=== PATIENT | female | born 1995 | race Caucasian/White ===

== ENCOUNTER 2016-11-08 02:30 | Emergency (ER) | payer OTHER ==
[2016-11-08 02:41] VITALS: TEMP 98; BMI 32.3
--- NOTE | 2016-11-08 02:50 | PDOC ---
History of Present Illness - General Chief Complaint: Psychiatric Stated Complaint: I DONT WANT TO LIVE Time Seen by Provider: 11/08/16 02:46 History Source: Patient Exam Limitations: No Limitations - History of Present Illness Initial Comments: 11/08/16 02:49 This is a 21-year-old female brought in by her family for evaluation of patient stating I don't want to live. Patient here in the emergency room is not talking to the emergency department staff and just closes her eyes and doesn't answer questions. Patient's family said that they do not think she took anything however they can't be sure they did not find any empty pill bottles there was no noted at home. But she did tell them she doesn't want to live. PAST MEDICAL HISTORY: no significant history PAST SURGICAL HISTORY: no significant history FAMILY HISTORY: no pertinant history SOCIAL HISTORY: Pt lives with family and is employed. MEDICATIONS: reviewed ALLERGIES: As per nursing notes Review of Systems General: No fevers or chills, no weakness, no weight loss HEENT: No change in vision. No sore throat,. No ear pain CardioVascular: No chest pain or shortness of breath Respiratory:No cough, or wheezing. Gastrointestinal: no nausea, vomitting, diarrhea or constipation, No rectal bleeding Genitourinary: No dysuria, hematuria, or frequency Musculoskeletal: No joint or muscle pain or swelling Neurologic: No headache, vertigo, dizziness or loss of consciousness Psychiatric: + depression Skin: No rashes or easy bruising Endocrine: no increased thirst or abnormal weight change Allergic: no skin or latex allergy All other systems reviewed and normal Exam: General: Well-nourished well-developed individual, no acute distress HEENT: Throat: Normal, tonsils normal, no erythema or exudate Neck: Supple, no meningeal signs, no lymphadenopathy Eyes::Pupils equal reactive and round, extraocular motion intact Chest: Nontender to palpation Cardiac: S1-S2 normal, regular rate and rhythm, no murmurs rubs or gallops Respiratory: Lungs clear to auscultation bilateral Abdomen: Soft, nondistended, normal bowel sounds, nontender to palpation diffusely Extremities: Warm, dry, no cyanosis, clubbing, or edema Skin: No rashes Neuro: Alert and oriented x3, nonfocal exam, grossly intact, normal gait Psych:depressed mood 11/08/16 03:56 Patient now more awake and alert, conversing with family and intermittently tearful. Patient said she did take some oxycodone. Patient takes oxycodone for some chronic wrist pain. Patient is also 2 months with twins and says she's been very stressed, getting very little sleep and is exhausted, tired , and depressed. 11/08/16 07:00 Patient transferred to at 7 AM. Patient's drug screen, tox screen and TSH are still pending at this time. Case discussed in detail with oncoming Emergency Physician including history, physical exam and ancillary studies. Oncoming Emergency Physician has assumed care for the patient and will complete the evaluation and treatment. Patient is aware of the plan. Pt is clinically unchanged and stable. Past History - Past Medical History Allergies/Adverse Reactions: Allergies Allergy/AdvReac Type Severity Reaction Status Date / Time No Known Allergies Allergy Unverified 11/08/16 02:34 Home Medications: Ambulatory Orders NK [No Known Home Medication] 11/08/16 Other medical history: DENIES - Psycho/Social/Smoking Cessation Hx Anxiety: No Suicidal Ideation: No Smoking History: Unknown if ever smoked *Physical Exam - Vital Signs Last Vital Signs Temp Pulse Resp BP Pulse Ox 98 F 89 18 147/100 100 11/08/16 02:38 11/08/16 02:38 11/08/16 02:38 11/08/16 02:38 11/08/16 02:38 ED Treatment Course - LABORATORY CBC & Chemistry Diagram: 11/08/16 02:55 11/08/16 02:55 *DC/Admit/Observation/Transfer Diagnosis at time of Disposition: Wrist pain - Discharge Dispostion Disposition: HOME Condition at time of disposition: Stable - Referrals Referrals: Vishal Ivan MD [Staff Physician] - 3 days - Patient Instructions Printed Discharge Instructions: DI for Wrist Sprain Additional Instructions: Return to the emergency department immediately with ANY new, persistent or worsening symptoms. You MUST call and follow up with your doctor tomorrow. Please make sure your doctor reviews the results of your emergency department evaluation.
[2016-11-08] MEDS ORDERED: ONDANSETRON 4 MG/2 ML VIAL IVPB ONE (03:17)
[2016-11-08] MEDS ORDERED: ONDANSETRON 4 MG/2 ML VIAL ONE (03:45)
[2016-11-08 04:30] LABS: URINE APPEARANCE SLCLOUDY; URINE BILIRUBIN NEGATIVE (NEGATIVE); URINE COLOR YELLOW; URINE GLUCOSE (UA) NEGATIVE (NEGATIVE); URINE KETONE NEGATIVE (NEGATIVE); URINE LEUK ESTERASE NEGATIVE (NEGATIVE); URINE NITRITE NEGATIVE (NEGATIVE); URINE UROBILINOGEN NEGATIVE E.U./dl (0.2-1.0)
[2016-11-08 04:32] LABS: BASOPHIL 0.5 % (0-2.0); MCH 26.8 pg (25.7-33.7); MCHC 32.3 g/dl (32.0-36.0); MEAN CELL VOLUME 82.9 fl (80-96); MEAN PLT VOLUME 9.2 fl (7.5-11.1); NEUTROPHILS 48.7 % (42.8-82.8); PLATELET COUNT 312 K/MM3 (134-434); RDW 15.8 % (11.6-15.6); WHITE BLOOD COUNT 7.5 K/mm3 (4.0-10.0)
[2016-11-08 04:33] LABS: URINE BLOOD 2+ (NEGATIVE); URINE PROTEIN 1+ (NEGATIVE)
[2016-11-08 04:36] LABS: GRANULAR CASTS 4 /lpf; URINE HYALINE CAST 11 /lpf; URINE MUCUS MODERATE; URINE RBC 2 /hpf (0-3); URINE WBC 6 /hpf (3-5)
[2016-11-08 05:02] LABS: ALBUMIN 3.7 g/dl (3.4-5.0); ANION GAP 16 (8-16); CALCIUM 8.9 mg/dL (8.5-10.1); CO2 21 mmol/L (21-32); CREATININE 0.8 mg/dL (0.55-1.02); GLUCOSE,RANDOM 121 mg/dL (74-106); SGOT/AST 24 U/L (15-37); SGPT/ALT 43 U/L (12-78)
[2016-11-08 05:05] LABS: ALK PHOS 131 U/L (45-117); BILIRUBIN,TOTAL 0.2 mg/dL (0.2-1.0); TOT PROT 8.1 g/dl (6.4-8.2); TROPONIN I < 0.02 ng/ml (0.00-0.05)
[2016-11-08 06:16] VITALS: BP 109/66; PULSE 68
--- NOTE | 2016-11-08 08:57 | PDOC ---
*Physical Exam - Vital Signs Last Vital Signs Temp Pulse Resp BP Pulse Ox 98 F 68 12 109/66 100 11/08/16 02:38 11/08/16 06:15 11/08/16 06:15 11/08/16 06:15 11/08/16 06:15 ED Treatment Course - LABORATORY CBC & Chemistry Diagram: 11/08/16 02:55 11/08/16 02:55 - ADDITIONAL ORDERS Additional order review: Laboratory Results 11/08/16 11/08/16 11/08/16 02:55 02:55 02:55 Sodium 138 Potassium 3.4 L Chloride 101 Carbon Dioxide 21 Anion Gap 16 BUN 21 H Creatinine 0.8 Creat Clearance w eGFR > 60 Random Glucose 121 H Calcium 8.9 Total Bilirubin 0.2 AST 24 ALT 43 Alkaline Phosphatase 131 H Creatine Kinase 138 Troponin I < 0.02 Total Protein 8.1 Albumin 3.7 Urine Color Yellow Urine Appearance Slcloudy Urine pH 5.0 Ur Specific [place] 1.026 Urine Protein 1+ H Urine Glucose (UA) Negative Urine Ketones Negative Urine Blood 2+ H Urine Nitrite Negative Urine Bilirubin Negative Urine Urobilinogen Negative Ur Leukocyte Esterase Negative Urine RBC 2 Urine WBC 6 Ur Epithelial Cells Moderate Hyaline Casts 11 Granular Casts 4 Urine Mucus Moderate Urine HCG, Qual Negative Alcohol, Quantitative < 5.0 11/08/16 02:55 RBC 4.85 MCV 82.9 MCHC 32.3 RDW 15.8 H MPV 9.2 Neutrophils % 48.7 Lymphocytes % 42.0 H Monocytes % 5.8 Eosinophils % 3.0 Basophils % 0.5 - RADIOLOGY Radiology Studies Ordered: Category Date Time Status WRIST W/HAND-RIGHT* [RAD] Stat Radiology 11/08/16 08:48 Ordered - Medications Given in the ED: ED Medications Discontinued Medications Generic Name Dose Route Start Last Admin Trade Name Freq PRN Reason Stop Dose Admin Ondansetron HCl 4 mg 11/08/16 03:17 11/08/16 03:42 Zofran Injection IVPB 11/08/16 03:18 4 mg ONCE ONE Administration Progress Note - Progress Note Progress Note: Patient is sitting upright in bed eating breakfast. She is verbal and responds to all my questions. She states she has been having right wrist pain for the past 4 months after a fall onto her outstretched arms. She was having a stressful day yesterday as she has twin infants. She also got into an argument with her sister. All of these stressors, combined with her wrist pain, caused her to take a Percocet (she has some left over after her ). She then became drowsy and nonresponsive, scaring her family. She states she was overwhelemed, but never thought about hurting herself or anyone else. Family believes she was telling them "I Dont want to live" but patient states she was trying to say "I feel like Im dying". She has been trying to see an occupational medicine specialist for some time, but hasnt been able to schedule an appointment as of yet. Will order X-Ray of right wrist & hand to assess for fractures. PE: No pain on axial load bearing No anatomic snuffbox tenderness XRay of hand and wrist returned (-) for fractures or pathologies. Patient seen by Dr Diehl and cleared for discharge. *DC/Admit/Observation/Transfer Diagnosis at time of Disposition: Wrist pain - Discharge Dispostion Disposition: HOME Condition at time of disposition: Stable - Referrals Referrals: Vishal Ivan MD [Staff Physician] - 3 days - Patient Instructions Printed Discharge Instructions: DI for Wrist Sprain Additional Instructions: Return to the emergency department immediately with ANY new, persistent or worsening symptoms. You MUST call and follow up with your doctor tomorrow. Please make sure your doctor reviews the results of your emergency department evaluation.
--- NOTE | 2016-11-08 09:50 | EKG ---
Test Reason : Blood Pressure : / mmHG Vent. Rate : 063 BPM Atrial Rate : 063 BPM P-R Int : 160 ms QRS Dur : 092 ms QT Int : 418 ms P-R-T Axes : 012 050 025 degrees QTc Int : 427 ms NORMAL SINUS RHYTHM NORMAL ECG NO PREVIOUS ECGS AVAILABLE Confirmed by MALACHI CONKLIN MD ([id number]) on 11/08/2016 9:50:28 AM Referred By: MD OLIVEROS Confirmed By:MALACHI CONKLIN MD
--- NOTE | 2016-11-08 11:10 | PDOC ---
*Physical Exam - Vital Signs Last Vital Signs Temp Pulse Resp BP Pulse Ox 98 F 68 12 109/66 100 11/08/16 02:38 11/08/16 06:15 11/08/16 06:15 11/08/16 06:15 11/08/16 06:15 - Physical Exam Comments: 11/08/16 11:08 The patient was seen by psychiatry, and cleared for discharge When I interviewed her, she denied any suicidal ideation or attempt She also stated that she did not feel she was suffering from depression or anxiety She clearly displayed the capacity to make her own decisions She was calm and cooperative, without evidence of anxiety or depression, and without evidence of psychosis 11/08/16 11:09 ED Treatment Course - LABORATORY CBC & Chemistry Diagram: 11/08/16 02:55 11/08/16 02:55 - ADDITIONAL ORDERS Additional order review: Laboratory Results 11/08/16 11/08/16 11/08/16 02:55 02:55 02:55 Sodium 138 Potassium 3.4 L Chloride 101 Carbon Dioxide 21 Anion Gap 16 BUN 21 H Creatinine 0.8 Creat Clearance w eGFR > 60 Random Glucose 121 H Calcium 8.9 Total Bilirubin 0.2 AST 24 ALT 43 Alkaline Phosphatase 131 H Creatine Kinase 138 Troponin I < 0.02 Total Protein 8.1 Albumin 3.7 Urine Color Yellow Urine Appearance Slcloudy Urine pH 5.0 Ur Specific [place] 1.026 Urine Protein 1+ H Urine Glucose (UA) Negative Urine Ketones Negative Urine Blood 2+ H Urine Nitrite Negative Urine Bilirubin Negative Urine Urobilinogen Negative Ur Leukocyte Esterase Negative Urine RBC 2 Urine WBC 6 Ur Epithelial Cells Moderate Hyaline Casts 11 Granular Casts 4 Urine Mucus Moderate Urine HCG, Qual Negative Alcohol, Quantitative < 5.0 11/08/16 02:55 RBC 4.85 MCV 82.9 MCHC 32.3 RDW 15.8 H MPV 9.2 Neutrophils % 48.7 Lymphocytes % 42.0 H Monocytes % 5.8 Eosinophils % 3.0 Basophils % 0.5 - Medications Given in the ED: ED Medications Discontinued Medications Generic Name Dose Route Start Last Admin Trade Name Freq PRN Reason Stop Dose Admin Ondansetron HCl 4 mg 11/08/16 03:17 11/08/16 03:42 Zofran Injection IVPB 11/08/16 03:18 4 mg ONCE ONE Administration *DC/Admit/Observation/Transfer Diagnosis at time of Disposition: Wrist pain - Discharge Dispostion Disposition: HOME Condition at time of disposition: Stable - Referrals Referrals: Vishal Ivan MD [Staff Physician] - 3 days - Patient Instructions Printed Discharge Instructions: DI for Wrist Sprain Additional Instructions: Return to the emergency department immediately with ANY new, persistent or worsening symptoms. You MUST call and follow up with your doctor tomorrow. Please make sure your doctor reviews the results of your emergency department evaluation.
--- NOTE | 2016-11-08 11:18 | CON.PSY ---
Psychiatry Consult Chief Complaint: I am not suicidal, my mom misunderstood me. I dont have any psych problems. - Previous Psychiatric Treatment Outpatient: None Inpatient: None - Previous Substance Abuse Treatment Outpatient: None Inpatient: None - Family History Family History: Unremarkable - Allergies Allergies: Allergies Allergy/AdvReac Type Severity Reaction Status Date / Time No Known Allergies Allergy Unverified 11/08/16 02:34 - Current Living Status Usual Living Arrangement: Alone - Current Mental Status Evaluation Appearance: Well Groomed Attitude: Cooperative - Affect Affect: Full Range Appropriateness: Appropriate to Content - Mood Mood: Euthymic - Speech/Language Expressive: Coherent - Psychomotor Activity Psychomotor Activity: Normal - Thought Process Thought Process: Intact - Thought Content Hallucinations: Absent Delusions: Absent - Self Perception Self Perception: No Impairment - Cognition Attention: Alert Orientation: Time Memory, Immediate Recall: Intact Memory, Short Term: 3/3 Memory, Remote with Promptin/3 - Concentration Serial Sevens Intact: Yes Simple Calculations Intact: Yes - Abstraction Proverb Interpretation: Intact Judgement: Minimally Impaired - Insight Insight: Intact - Impulse Control Impulse Control: Good Control - Suicidal Ideation Suicidal Ideation: No - Homicidal Ideation Homicidal Ideation: No Assessment/Plan No acute mental illness. Discharge patient home. No psych follow up needed.
[2016-11-08 13:32] LABS: URINE MARIJUANA THC NEGATIVE ng/ml (CUTOFF=50)
== END 2016-11-08 11:53 | disposition home or self-care (01) ==
LOC: FER 02:30
PROC: 3E033GC Introduction of Other Therapeutic Substance into Peripheral Vein, Percutaneous Approach (ICD-10-PCS; principal; 2016-11-08)
DX: M25.531 Pain in right wrist (principal); F32.9 Major depressive disorder, single episode, unspecified
CPT/HCPCS: 36415; 73110-TC-RT; 73130-TC-RT; 80053; 80307; 81003; 81015; 82550; 84443; 84484; 84703; 85025; 93005; 99283-25

== ENCOUNTER 2018-06-26 19:29 | Inpatient (IN) | payer BC, OTHER ==
--- NOTE | 2018-06-26 19:31 | PDOC ---
History of Present Illness - General History Source: Patient Exam Limitations: No Limitations - History of Present Illness Initial Comments: 06/26/18 20:09 The patient is a 23 year old female, with no significant past medical history, who presents to the emergency department with, fever and right flank pain. As per patient, she was seen at [facility] days ago and diagnosed with pyelonephritis on CT abdomen and sent out on outpatient ciprofloxacin. Today she reports a fever, diffuse body aches, and right flank pain. She denies recent nausea, vomit, diarrhea or constipation. She denies recent chest pain or shortness of breath. Allergies: NKA Past surgical history: None reported. Social history: Nonsmoker. Denies EtOH use and recreational drug use. <Driss Leonardo - Last Filed: 06/26/18 20:09> <Vivien Merrill - Last Filed: 06/27/18 01:47> - General Chief Complaint: Pain, Acute Stated Complaint: RT FLANK PAIN Past History <Driss Leonardo - Last Filed: 06/26/18 20:09> - Suicide/Smoking/Psychosocial Hx Smoking History: Unknown if ever smoked <Vivien Merrill - Last Filed: 06/27/18 01:47> - Past Medical History Allergies/Adverse Reactions: Allergies Allergy/AdvReac Type Severity Reaction Status Date / Time No Known Allergies Allergy Unverified 11/08/16 02:34 Home Medications: Ambulatory Orders Cipro 06/26/18 Tylenol 06/26/18 Review of Systems - Review of Systems Able to Perform ROS?: Yes Comments:: 06/26/18 20:10 +GENERAL/CONSTITUTIONAL: Fever. Weakness. HEAD, EYES, EARS, NOSE AND THROAT: No change in vision. No ear pain or discharge. No sore throat. CARDIOVASCULAR: No chest pain or shortness of breath. RESPIRATORY: No cough, wheezing, or hemoptysis. GASTROINTESTINAL: No nausea, vomiting, diarrhea or constipation. +GENITOURINARY: Right flank pain. No dysuria, frequency, or change in urination. MUSCULOSKELETAL: No joint or muscle swelling or pain. No neck or back pain. SKIN: No rash NEUROLOGIC: No vertigo, loss of consciousness, or change in strength/sensation. ENDOCRINE: No increased thirst. No abnormal weight change. HEMATOLOGIC/LYMPHATIC: No anemia, easy bleeding, or history of blood clots. ALLERGIC/IMMUNOLOGIC: No hives or skin allergy. All Other Systems: Reviewed and Negative <Driss Leonardo - Last Filed: 06/26/18 20:09> *Physical Exam - Vital Signs Last Vital Signs Temp Pulse Resp BP Pulse Ox 103 F H 84 24 122/99 99 06/26/18 19:33 06/26/18 19:33 06/26/18 19:33 06/26/18 19:33 06/26/18 19:33 - Physical Exam Comments: 06/26/18 20:10 +GENERAL: Uncomfortably appearing. Warm to touch. Awake, alert, and fully oriented. HEAD: No signs of trauma EYES: PERRLA, EOMI, sclera anicteric, conjunctiva clear ENT: Auricles normal inspection, hearing grossly normal, nares patent, oropharynx clear without exudates. Moist mucosa NECK: Normal ROM, supple, no lymphadenopathy, JVD, or masses LUNGS: Breath sounds equal, clear to auscultation bilaterally. No wheezes, and no crackles HEART: Regular rate and rhythm, normal S1 and S2, no murmurs, rubs or gallops ABDOMEN: Soft, nontender, normoactive bowel sounds. No guarding, no rebound. No masses BACK: Right flank pain. EXTREMITIES: Normal range of motion, no edema. No clubbing or cyanosis. No cords, erythema, or tenderness NEUROLOGICAL: Cranial nerves II through XII grossly intact. Normal speech, normal gait SKIN: Warm, Dry, normal turgor, no rashes or lesions noted. <Driss Leonardo - Last Filed: 06/26/18 20:09> ED Treatment Course - ADDITIONAL ORDERS Additional order review: Laboratory Results 06/26/18 19:30 Urine Color Yellow Urine Appearance Clear Urine pH >= 9.0 H Ur Specific [place] 1.020 Urine Protein 2+ H Urine Glucose (UA) Negative Urine Ketones Negative Urine Blood 1+ H Urine Nitrite Negative Urine Bilirubin Negative Urine Urobilinogen 2.0 H Ur Leukocyte Esterase Negative Urine RBC 5-8 Urine WBC 0-2 Urine Bacteria Few Urine HCG, Qual Negative <Driss Leonardo - Last Filed: 06/26/18 20:09> - LABORATORY CBC & Chemistry Diagram: 06/26/18 20:10 06/26/18 20:10 <Vivien Merrill - Last Filed: 06/27/18 01:47> Medical Decision Making - Medical Decision Making 06/26/18 21:07 Pt has a normal chest XRAY 06/26/18 21:14 WBC is not elevated. However temp is 103F and pt failed outpatient therapy with cipro. She has edematous kidneys bilaterally - hallmark of pyelonephritis. 06/27/18 01:45 Pt admitted to the hospitalist service. She is feeling better with treatment in the ER. Patient Name: TEQUILA BE THIS IS A PRELIMINARY REPORT FROM [facility] DATE OF SERVICE: 2018-06-26 20:27:22 IMAGES: 21 EXAM: Bilateral renal sonogram. Clinical indication: Left flank pain. There are no prior studies available for comparison. Findings: The right kidney measures 11.5 x 6.0 x 5.7 cm in diameter and has an unremarkable sonographic appearance without sonographically detected focal abnormality. There is no right -sided hydronephrosis or renal calculi. There is no ascites. Visualization of the left kidney was somewhat limited as it was only visible through the patient's ribs. The left kidney measures 10.2 x 6.9 x 6.7 cm in diameter without sonographically detected focal abnormality. There is no left-sided hydronephrosis or renal calculi. The business office coordinator as noted in the worksheet comments the appearance of edematous kidneys bilaterally. However, the appearance of the kidneys are within normal limits for the patient's age. Impression: Unremarkable bilateral renal sonogram. THIS DOCUMENT HAS BEEN ELECTRONICALLY SIGNED <Vivien Merrill - Last Filed: 06/27/18 01:47> *DC/Admit/Observation/Transfer - Attestations Scribe Attestion: 06/26/18 20:10 Documentation prepared by Driss Leonardo, acting as center medical and lab director for Vivien Merrill MD. <Driss Leonardo - Last Filed: 06/26/18 20:09> - Discharge Dispostion Decision to Admit order: Yes <Vivien Merrill - Last Filed: 06/27/18 01:47> Diagnosis at time of Disposition: Pyelonephritis - Discharge Dispostion Condition at time of disposition: Stable
[2018-06-26 19:40] LABS: PH,URINE >= 9.0 (4.5-8); URINE APPEARANCE Clear; URINE BILIRUBIN Negative (NEGATIVE); URINE COLOR Yellow; URINE GLUCOSE (UA) Negative (NEGATIVE); URINE KETONE Negative (NEGATIVE); URINE LEUK ESTERASE Negative (NEGATIVE); URINE NITRITE Negative (NEGATIVE); URINE PROTEIN 2+ (NEGATIVE)
[2018-06-26] MEDS ORDERED: CEFTRIAXONE 1,000 MG in DEXTROSE 5%-WATER - 50 ML IVPB ONE (19:44)
[2018-06-26 19:46] LABS: HCG,QUALITATIVE URINE Negative; URINE BACTERIA FEW /hpf (NEGATIVE); URINE WBC 0-2 (0-5)
[2018-06-26] MEDS ORDERED: cefTRIAXone SODIUM 1 GM VIAL ONE (19:59)
[2018-06-26] MEDS ORDERED: morphine SULFATE 4 MG/ML VIAL ONE (20:04)
[2018-06-26] MEDS ORDERED: morphine CARPU-JECT 2 MG/1 ML DISP.SYRIN IVPUSH ONE (20:04)
[2018-06-26 20:34] LABS: HEMATOCRIT 33.9 % (32.4-45.2); HEMOGLOBIN 11.2 GM/dl (10.7-15.3); MCH 29.1 pg (25.7-33.7); MCHC 33.2 g/dl (32.0-36.0); MEAN CELL VOLUME 87.9 fl (80-96); PLATELET COUNT 246 K/MM3 (134-434); RBC 3.85 M/mm3 (3.60-5.2); RDW 12.9 % (11.6-15.6); WHITE BLOOD COUNT 9.5 K/mm3 (4.0-10.8)
[2018-06-26 20:40] LABS: INR 1.74 (0.82-1.09); PROTHROMBIN TIME (PATIENT) 19.3 SEC (10.2-13.0)
[2018-06-26 20:46] LABS: ALBUMIN 3.2 g/dl (3.5-5.0); ALK PHOS 80 U/L (32-92); ANION GAP 10 MMOL/L (8-16); BILIRUBIN,TOTAL 0.4 mg/dl (0.2-1.0); BLOOD UREA NITROGEN 8 mg/dl (7-18); CALCIUM 8.3 mg/dl (8.4-10.2); CHLORIDE 101 mmol/L (98-107); CO2 20 mmol/L (22-28); CREATININE 0.6 mg/dl (0.6-1.3); GLUCOSE,RANDOM 104 mg/dl (74-106); POTASSIUM 3.6 mmol/L (3.5-5.1); SGOT/AST 60 U/L (10-42); SGPT/ALT 52 U/L (10-40); SODIUM 131 mmol/L (136-145); TOT PROT 7.1 g/dl (6.4-8.3)
[2018-06-26 20:54] LABS: PLATELET ESTIMATE ADEQUATE
[2018-06-26] MEDS ORDERED: KETOROLAC TROMETHAMINE 30 MG/1 ML VIAL IVPUSH ONE (20:56)
[2018-06-26] MEDS ORDERED: KETOROLAC TROMETHAMINE 30 MG/1 ML VIAL ONE (20:56)
[2018-06-26] MEDS ORDERED: SODIUM CHLORIDE 1,000 ML IV SCH (21:45)
[2018-06-26] MEDS ORDERED: ACETAMINOPHEN 325 MG TABLET (FP) PO PRN (22:13)
--- NOTE | 2018-06-26 22:31 | HP ---
CHIEF COMPLAINT: Fever, Flank Pain, RUQ Pain PCP: HISTORY OF PRESENT ILLNESS: This is a 23 y/o young woman with no significant medical history. Who presents to the ED with her mother with R- flank pain, RUQ pain, and fever x 5 days. Patient reports having severe flank pain that was no longer relieved with NSAIDs. She reports going to [facility] 2 days ago and had a CTAP, diagnosed with Pyelonephritis given Rx Cipro and discharged to home. Patient reports taking her Cipro as prescribed, but the flank pain worsened. Patient denies chills, cough, SOB, dizziness, CP, palpitations, diarrhea, dysuria. 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[email or web address]) Family History: Father: Psoriasis Allergies No Known Allergies Allergy (Unverified 11/08/16 02:34) HOME MEDICATIONS: Home Medications Medication Instructions Recorded Cipro 06/26/18 Tylenol 06/26/18 REVIEW OF SYSTEMS CONSTITUTIONAL: fever, loss of appetite, Absent: chills, diaphoresis, generalized weakness, malaise, weight change HEENT: Absent: rhinorrhea, nasal congestion, throat pain, throat swelling, difficulty swallowing, mouth swelling, ear pain, eye pain, visual changes CARDIOVASCULAR: Absent: chest pain, syncope, palpitations, irregular heart rate, lightheadedness , peripheral edema RESPIRATORY: Absent: cough, shortness of breath, dyspnea with exertion, orthopnea, wheezing, stridor, hemoptysis GASTROINTESTINAL: abdominal pain, nausea, constipation Absent: abdominal distension, vomiting, diarrhea,melena, hematochezia GENITOURINARY: flank pain Absent: dysuria, frequency, urgency, hesitancy, hematuria, genital pain MUSCULOSKELETAL: back pain Absent: myalgia, arthralgia, joint swelling, neck pain SKIN: Absent: rash, itching, pallor HEMATOLOGIC/IMMUNOLOGIC: Absent: easy bleeding, easy bruising, lymphadenopathy, frequent infections ENDOCRINE: Absent: unexplained weight gain, unexplained weight loss, heat intolerance, cold intolerance NEUROLOGIC: Absent: headache, focal weakness or paresthesias, dizziness, unsteady gait, seizure, mental status changes, bladder or bowel incontinence PSYCHIATRIC: Absent: anxiety, depression, suicidal or homicidal ideation, hallucinations. PHYSICAL EXAMINATION Vital Signs - 24 hr 06/26/18 06/26/18 19:33 22:27 Temperature 103 F H 99.4 F Pulse Rate 84 Pulse Rate [ 89 Radial] Respiratory 24 17 Rate Blood Pressure 122/99 Blood Pressure 101/62 [Arm] O2 Sat by Pulse 99 100 Oximetry (%) GENERAL: Awake, alert, and fully oriented, in no acute distress. HEAD: Normal with no signs of trauma. EYES: Pupils equal, round and reactive to light, extraocular movements intact, sclera anicteric, conjunctiva clear. No lid lag. EARS, NOSE, THROAT: Ears normal, nares patent, oropharynx clear without exudates. Dry mucous membranes. NECK: Normal range of motion, supple without lymphadenopathy, JVD, or masses. LUNGS: Breath sounds equal, clear to auscultation bilaterally. No wheezes, and no crackles. No accessory muscle use. HEART: Regular rate and rhythm, normal S1 and S2 without murmur, rub or gallop. ABDOMEN: Soft, nontender, not distended, normoactive bowel sounds, no guarding, no rebound, no masses. No hepatomegaly or splenomegaly. MUSCULOSKELETAL: Normal range of motion at all joints. No bony deformities or tenderness, No L-CVA tenderness. +R- CVA tenderness. UPPER EXTREMITIES: 2+ pulses, warm, well-perfused. No cyanosis. No clubbing. No peripheral edema. LOWER EXTREMITIES: 2+ pulses, warm, well-perfused. No calf tenderness. No peripheral edema. NEUROLOGICAL: Cranial nerves II-XII intact. Normal speech. Gait not observed. PSYCHIATRIC: Cooperative. Good eye contact. Appropriate mood and affect. SKIN: Warm, dry, normal turgor, no rashes or lesions noted, normal capillary refill. Laboratory Results - last 24 hr 06/26/18 06/26/18 06/26/18 19:30 20:10 20:10 WBC 9.5 RBC 3.85 Hgb 11.2 Hct 33.9 MCV 87.9 MCH 29.1 MCHC 33.2 RDW 12.9 Plt Count 246 MPV 9.0 Absolute Neuts (auto) 7.1 Neutrophils % No Result Required. Neutrophils % (Manual) 79.0 Band Neutrophils % 1.0 Lymphocytes % No Result Required. Lymphocytes % (Manual) 14.0 Monocytes % (Manual) 6 Platelet Estimate Adequate PT with INR 19.3 H INR 1.74 H Sodium Potassium Chloride Carbon Dioxide Anion Gap BUN Creatinine Creat Clearance w eGFR Random Glucose Lactic Acid Calcium Total Bilirubin AST ALT Alkaline Phosphatase Total Protein Albumin Urine Color Yellow Urine Appearance Clear Urine pH >= 9.0 H Ur Specific [place] 1.020 Urine Protein 2+ H Urine Glucose (UA) Negative Urine Ketones Negative Urine Blood 1+ H Urine Nitrite Negative Urine Bilirubin Negative Urine Urobilinogen 2.0 H Ur Leukocyte Esterase Negative Urine RBC 5-8 Urine WBC 0-2 Urine Bacteria Few Urine HCG, Qual Negative 06/26/18 06/26/18 20:10 20:10 WBC RBC Hgb Hct MCV MCH MCHC RDW Plt Count MPV Absolute Neuts (auto) Neutrophils % Neutrophils % (Manual) Band Neutrophils % Lymphocytes % Lymphocytes % (Manual) Monocytes % (Manual) Platelet Estimate PT with INR INR Sodium 131 L Potassium 3.6 Chloride 101 Carbon Dioxide 20 L Anion Gap 10 BUN 8 Creatinine 0.6 Creat Clearance w eGFR > 60 Random Glucose 104 Lactic Acid 1.2 Calcium 8.3 L Total Bilirubin 0.4 AST 60 H ALT 52 H Alkaline Phosphatase 80 Total Protein 7.1 Albumin 3.2 L Urine Color Urine Appearance Urine pH Ur Specific [place] Urine Protein Urine Glucose (UA) Urine Ketones Urine Blood Urine Nitrite Urine Bilirubin Urine Urobilinogen Ur Leukocyte Esterase Urine RBC Urine WBC Urine Bacteria Urine HCG, Qual ASSESSMENT/PLAN: This is a 23 y/o young woman with no PMHx. Admitted for Acute Pyelonephritis secondary to Failed Outpatient Therapy for further evaluation of their emergent condition. Plan: FEN - NS@100ml/hr - Replete lytes prn - Reg Diet as tolerated DVT ppx - OOB - SCDs Code Status: Full Code Dispo: Requires Inpatient Care Problem List - Problem (1) Pyelonephritis Assessment/Plan: - Will admit to M/S - Secondary to Failed Outpatient Therapy - Urinalysis- +1 blood, bacteria, +2 protein - Urine Culture Pending - Blood cultures-pending - Upreg- neg - Renal US- unremarkable - T max 103.0 - no leukocytosis likely secondary to recent ABX use - Given Ceftriaxone in ED - Will start on Meropenem for MDR coverage - Appreciate ID consult - Repeat CBC, BMP in am - Toradol prn pain - Tylenol prn fever - IVF - Diet as tolerated Code(s): N12 - TUBULO-INTERSTITIAL NEPHRITIS, NOT SPCF ACUTE OR CHRONIC (2) RUQ abdominal pain Assessment/Plan: -Likely secondary to acute pyelonephritis vs gastritis vs cholelithiasis - See above Code(s): R10.11 - RIGHT UPPER QUADRANT PAIN Visit type - Emergency Visit Emergency Visit: Yes ED Registration Date: 06/26/18 Care time: The patient presented to the Emergency Department on the above date and was hospitalized for further evaluation of their emergent condition. - New Patient This patient is new to me today: Yes Date on this admission: 06/26/18 - Critical Care Critical Care patient: No Hospitalist Screening - Colonoscopy Questionnaire Colonoscopy Questionnaire: Colonoscopy Questionnaire - Patient: 50 - 75 years old and never had a screening colonoscopy: No History of colon or rectal polyps, or CA: No History of IBD, Crohn's disease or UC: No History of abdominal radiation therapy as a child: No - Relative: 1 with colon or rectal CA, or polyps at age 60 or younger: No Colon or rectal CA diagnosed at age 45 or younger: No Multiple relatives with colon or rectal CA: No - Outcome: Screening Result: Negative Screen
[2018-06-26 23:19] VITALS: BMI 26.4
[2018-06-27] MEDS: MEROPENEM 1 GM in DEXTROSE 5%-WATER - 100 ML IVPB SCH ×3 (01:17→10:35)
[2018-06-27] MEDS ORDERED: KETOROLAC TROMETHAMINE 15 MG/ML VIAL IVPUSH PRN (03:00)
[2018-06-27 09:21] LABS: BASO % 0.7 % (0-2.0); EOS % 0.3 % (0-4.5); HEMATOCRIT 31.1 % (32.4-45.2); HEMOGLOBIN 9.9 GM/dl (10.7-15.3); LYMPH % 16.4 % (8-40); MCH 28.5 pg (25.7-33.7); MEAN CELL VOLUME 89.3 fl (80-96); MEAN PLT VOLUME 9.6 fl (7.5-11.1); MONO % 14.2 % (3.8-10.2); NEUT % 68.4 % (42.8-82.8); PLATELET COUNT 239 K/MM3 (134-434); RBC 3.48 M/mm3 (3.60-5.2); RDW 12.9 % (11.6-15.6); WHITE BLOOD COUNT 8.9 K/mm3 (4.0-10.8)
[2018-06-27 09:38] LABS: ANION GAP 11 MMOL/L (8-16); BLOOD UREA NITROGEN 8 mg/dl (7-18); CALCIUM 7.8 mg/dl (8.4-10.2); CHLORIDE 103 mmol/L (98-107); CO2 22 mmol/L (22-28); CREATININE 0.6 mg/dl (0.6-1.3); GLUCOSE,RANDOM 77 mg/dl (74-106); POTASSIUM 3.6 mmol/L (3.5-5.1); SODIUM 136 mmol/L (136-145)
[2018-06-27] MEDS ORDERED: PT OWN MED DRAWER 7, Y5N ONE (10:00)
[2018-06-27] MEDS ORDERED: traMADol HCL 50 MG TABLET PO PRN (10:21)
[2018-06-27] MEDS ORDERED: ACETAMINOPHEN 1000 MG/100 ML VIAL (NON FORMULARY) IVPB PRN (10:21)
[2018-06-27] MEDS ORDERED: ACETAMINOPHEN 325 MG TABLET (FP) PO ONE (11:47)
--- NOTE | 2018-06-27 11:55 | PN ---
Progress Note (short form) - Note Progress Note: ID Consult dictated Probable R pyelonephritis + E coli UTI ( confirmed with microbiology lab [facility] ) Await cultures Ceftriaxone 2gm IVPB q24h IVF hydration
[2018-06-27] MEDS ORDERED: CEFTRIAXONE 2 GM-D5W BAG 2 GM/50 ML BAG IVPB SCH (12:00)
[2018-06-27] MEDS ORDERED: SODIUM CHLORIDE 1,000 ML IV SCH (13:48)
--- NOTE | 2018-06-27 14:10 | PN ---
Physical Exam: SUBJECTIVE: Patient seen and examined. States her pain is gone, she is tired, no nausea, vomiting. OBJECTIVE: Vital Signs Period Temp Pulse Resp BP Sys/Cast Pulse Ox Last 24 Hr 99.3 F-103 F 75-89 17-24 101-122/57-99 95-100 PE Neuro: alert, awake, cn 2-12intact Pulm: CTAB CV: s1 s2 rrr no mrg Abd: s nt nd + bs : neg murphys test Ext: no le edema Laboratory Results - last 24 hr 06/26/18 06/26/18 06/26/18 19:30 20:10 20:10 WBC 9.5 RBC 3.85 Hgb 11.2 Hct 33.9 MCV 87.9 MCH 29.1 MCHC 33.2 RDW 12.9 Plt Count 246 MPV 9.0 Absolute Neuts (auto) 7.1 Neutrophils % No Result Required. Neutrophils % (Manual) 79.0 Band Neutrophils % 1.0 Lymphocytes % No Result Required. Lymphocytes % (Manual) 14.0 Monocytes % Monocytes % (Manual) 6 Eosinophils % Basophils % Platelet Estimate Adequate PT with INR 19.3 H INR 1.74 H Sodium Potassium Chloride Carbon Dioxide Anion Gap BUN Creatinine Creat Clearance w eGFR Random Glucose Lactic Acid Calcium Total Bilirubin AST ALT Alkaline Phosphatase Total Protein Albumin Urine Color Yellow Urine Appearance Clear Urine pH >= 9.0 H Ur Specific [place] 1.020 Urine Protein 2+ H Urine Glucose (UA) Negative Urine Ketones Negative Urine Blood 1+ H Urine Nitrite Negative Urine Bilirubin Negative Urine Urobilinogen 2.0 H Ur Leukocyte Esterase Negative Urine RBC 5-8 Urine WBC 0-2 Urine Bacteria Few Urine HCG, Qual Negative 06/26/18 06/26/18 06/27/18 20:10 20:10 06:00 WBC RBC Hgb Hct MCV MCH MCHC RDW Plt Count MPV Absolute Neuts (auto) Neutrophils % Neutrophils % (Manual) Band Neutrophils % Lymphocytes % Lymphocytes % (Manual) Monocytes % Monocytes % (Manual) Eosinophils % Basophils % Platelet Estimate PT with INR INR Sodium 131 L 136 Potassium 3.6 3.6 Chloride 101 103 Carbon Dioxide 20 L 22 Anion Gap 10 11 BUN 8 8 Creatinine 0.6 0.6 Creat Clearance w eGFR > 60 > 60 Random Glucose 104 77 D Lactic Acid 1.2 Calcium 8.3 L 7.8 L Total Bilirubin 0.4 AST 60 H ALT 52 H Alkaline Phosphatase 80 Total Protein 7.1 Albumin 3.2 L Urine Color Urine Appearance Urine pH Ur Specific [place] Urine Protein Urine Glucose (UA) Urine Ketones Urine Blood Urine Nitrite Urine Bilirubin Urine Urobilinogen Ur Leukocyte Esterase Urine RBC Urine WBC Urine Bacteria Urine HCG, Qual 06/27/18 06:00 WBC 8.9 RBC 3.48 L Hgb 9.9 L Hct 31.1 L MCV 89.3 MCH 28.5 MCHC 32.0 RDW 12.9 Plt Count 239 MPV 9.6 Absolute Neuts (auto) 6.0 Neutrophils % 68.4 Neutrophils % (Manual) Band Neutrophils % Lymphocytes % 16.4 Lymphocytes % (Manual) Monocytes % 14.2 H Monocytes % (Manual) Eosinophils % 0.3 Basophils % 0.7 Platelet Estimate PT with INR INR Sodium Potassium Chloride Carbon Dioxide Anion Gap BUN Creatinine Creat Clearance w eGFR Random Glucose Lactic Acid Calcium Total Bilirubin AST ALT Alkaline Phosphatase Total Protein Albumin Urine Color Urine Appearance Urine pH Ur Specific [place] Urine Protein Urine Glucose (UA) Urine Ketones Urine Blood Urine Nitrite Urine Bilirubin Urine Urobilinogen Ur Leukocyte Esterase Urine RBC Urine WBC Urine Bacteria Urine HCG, Qual Active Medications Generic Name Dose Route Start Last Admin Trade Name Freq PRN Reason Stop Dose Admin Acetaminophen 650 mg 06/26/18 22:13 Tylenol - PO Q6H PRN PAIN LEVEL 1-5 OR FEVER Acetaminophen 1,000 mg 06/27/18 10:21 06/27/18 12:45 Ofirmev Injection - IVPB 1,000 mg Q6H PRN Administration PAIN LEVEL 1-5 Ceftriaxone Sodium 2 gm in 50 mls @ 100 mls/hr 06/27/18 12:00 06/27/18 12:45 Ceftriaxone 2 Gm-D5w Bag IVPB 100 mls/hr DAILY NINA Administration Protocol Sodium Chloride 1,000 mls @ 75 mls/hr 06/27/18 13:48 Normal Saline - IV ASDIR NINA Tramadol HCl 50 mg 06/27/18 10:21 Ultram - PO Q6H PRN PAIN LEVEL 6-10 Assessment: 23 year old female with no pmhx presented with 5 days of unrelieved r sided flank pain. Was seen in [facility] 2 days prior with CTAP showing pylenephritis , prescribed cipro, symptoms worsened. Plan: 1. Right pyleonephritis, UTI - UTI at [facility] + E coli - Stop nadia - Started ceftriaxone 2gm daily - Decrease IVF 75cc/hr - Blood, urine cx pending - Of note, pt had IUD removed in 01/2018, it was dislodged, has been using protection since and with one partner, has 2 year old twins - ID seeing 2. DVT - Heparin sq Visit type - Emergency Visit Emergency Visit: Yes ED Registration Date: 06/26/18 Care time: The patient presented to the Emergency Department on the above date and was hospitalized for further evaluation of their emergent condition. - New Patient This patient is new to me today: Yes Date on this admission: 06/27/18 - Critical Care Critical Care patient: No - Discharge Referral Referred to [facility] Med [facility].C[facility] No
[2018-06-27] MEDS ORDERED: MEROPENEM 1 GM in DEXTROSE 5%-WATER 100 ML IVPB SCH (18:00)
--- NOTE | 2018-06-27 22:21 | EKG ---
Test Reason : Blood Pressure : / mmHG Vent. Rate : 088 BPM Atrial Rate : 088 BPM P-R Int : 148 ms QRS Dur : 084 ms QT Int : 334 ms P-R-T Axes : 047 053 034 degrees QTc Int : 404 ms NORMAL SINUS RHYTHM NORMAL ECG WHEN COMPARED WITH ECG OF 08-NOV-2016 04:39, NO SIGNIFICANT CHANGE WAS FOUND Confirmed by EARL JUAREZ MD ([id number]) on 06/27/2018 10:20:43 PM Referred By: DR MORRIS Confirmed By:EARL JUAREZ MD
[2018-06-28 06:21] VITALS: BP 110/55; PULSE 72; TEMP 98.8
[2018-06-28 08:35] LABS: ANION GAP 7 MMOL/L (8-16); BLOOD UREA NITROGEN 5 mg/dl (7-18); CALCIUM 7.9 mg/dl (8.4-10.2); CHLORIDE 103 mmol/L (98-107); CO2 25 mmol/L (22-28); GLUCOSE,RANDOM 96 mg/dl (74-106); MAGNESIUM 2.2 mg/dL (1.8-2.4); POTASSIUM 3.6 mmol/L (3.5-5.1); SODIUM 135 mmol/L (136-145)
[2018-06-28 08:52] LABS: CREATININE < 0.6 mg/dl (0.6-1.3)
[2018-06-28 09:27] LABS: BASO % 0.5 % (0-2.0); EOS % 0.5 % (0-4.5); HEMATOCRIT 30.2 % (32.4-45.2); LYMPH % 30.4 % (8-40); MCH 29.3 pg (25.7-33.7); MCHC 33.2 g/dl (32.0-36.0); MEAN CELL VOLUME 88.3 fl (80-96); MEAN PLT VOLUME 9.2 fl (7.5-11.1); MONO % 12.7 % (3.8-10.2); NEUT % 55.9 % (42.8-82.8); PLATELET COUNT 281 K/MM3 (134-434); RBC 3.42 M/mm3 (3.60-5.2); RDW 12.6 % (11.6-15.6); WHITE BLOOD COUNT 7.1 K/mm3 (4.0-10.8)
[2018-06-28] MEDS ORDERED: CEFTRIAXONE 2 GM/100 ML BAG IVPB SCH (10:00)
[2018-06-28] MEDS ORDERED: CEFTRIAXONE 1 GM in DEXTROSE 5%-WATER - 50 ML IVPB SCH (10:00)
--- NOTE | 2018-06-28 10:02 | DS ---
Physical Exam: SUBJECTIVE: Patient seen and examined, Patient is sitting up in bed, tolerating diet, denies any abdominal pain or flank pain, reports voiding independently into the toilet denies any dysuria.Patient denies any tactile fever. OBJECTIVE: This is a 23 y/o young woman with no significant medical history. Who presents to the ED with her mother with R- flank pain, RUQ pain, and fever x 5 days. Patient reports having severe flank pain that was no longer relieved with NSAIDs. She reports going to [facility] 2 days ago and had a CTAP, diagnosed with Pyelonephritis given Rx Cipro and discharged to home. Patient reports taking her Cipro as prescribed, but the flank pain worsened. Patient denies chills, cough, SOB, dizziness, CP, palpitations, diarrhea, dysuria. Patient denies recent sick contacts ER course was notable for: (1) T Max 103.0 (2) Na 131 (3) Renal US- unremarkable Vital Signs Period Temp Pulse Resp BP Sys/Cast Pulse Ox Last 24 Hr 98.4 F-100.3 F 72-88 18-18 110-123/53-66 95-99 PHYSICAL EXAM GENERAL: The patient is awake, alert, and fully oriented, in no acute distress. HEAD: Normal with no signs of trauma. EYES: PERRL, extraocular movements intact, sclera anicteric, conjunctiva clear. ENT: Ears normal, nares patent, oropharynx clear without exudates, moist mucous membranes. NECK: Trachea midline, full range of motion, supple. LUNGS: Breath sounds equal, clear to auscultation bilaterally, no wheezes, no crackles, no accessory muscle use. HEART: Regular rate and rhythm, S1, S2 without murmur, rub or gallop. ABDOMEN: Soft, nontender, nondistended, normoactive bowel sounds, no guarding, no rebound, no hepatosplenomegaly, no masses. EXTREMITIES: 2+ pulses, warm, well-perfused, no edema. NEUROLOGICAL: Cranial nerves II through XII grossly intact. Normal speech, gait not observed. PSYCH: Normal mood, normal affect. SKIN: Warm, dry, normal turgor, no rashes or lesions noted. LABS Laboratory Results - last 24 hr 06/28/18 06/28/18 08:00 08:00 WBC 7.1 RBC 3.42 L Hgb 10.0 L Hct 30.2 L MCV 88.3 MCH 29.3 MCHC 33.2 RDW 12.6 Plt Count 281 MPV 9.2 Absolute Neuts (auto) 4.1 Neutrophils % 55.9 Lymphocytes % 30.4 Monocytes % 12.7 H Eosinophils % 0.5 Basophils % 0.5 Sodium 135 L Potassium 3.6 Chloride 103 Carbon Dioxide 25 Anion Gap 7 L BUN 5 L Creatinine < 0.6 L Creat Clearance w eGFR > 60 Random Glucose 96 D Calcium 7.9 L Magnesium 2.2 Microbiology 06/26/18 20:10 Blood - Peripheral Venous Blood Culture - Preliminary NO GROWTH OBTAINED AFTER 24 HOURS, INCUBATION TO CONTINUE FOR 4 DAYS. 06/26/18 20:10 Blood - Peripheral Venous Blood Culture - Preliminary NO GROWTH OBTAINED AFTER 24 HOURS, INCUBATION TO CONTINUE FOR 4 DAYS. Imaging Ultrasound of kidneys:Normal kidneys no acute pathology HOSPITAL COURSE: Patient was admitted from the emergency department To the Medical surgical floor for right pyelonephritis. She was evaluated at [facility] prior to admission. Urine culture at [facility] + E coli. Patient was treated with 2 g of ceftriaxone for 48 hours. No leukocytosis was noted, patient remained afebrile. Urine culture is pending, blood cultures is negative to date. Infectious disease physician Dr. Horvath was consulted and followed patient throughout admission. PLAN: - discharge home, continue ciprofloxacin bid for the next 10 days - patient advised to follow up with her PCP within 7 days for a repeat urinalysis. Date of Admission:06/26/18 Date of Discharge: 06/28/18 Discharge Summary Reason For Visit: RT FLANK PAIN Current Active Problems Pyelonephritis (Acute) RUQ abdominal pain (Acute) Condition: Stable - Instructions Diet, Activity, Other Instructions: rest, frequent amounts of fluids through out the day continue Ciprofloxacin twice a day for the next 7 days Please follow-up with your primary care physician within 7 days For a repeat urinalysis If any new or persistent symptoms and please return to emergency department hospital Referrals: Chester Stevens MD [Staff Physician] - Disposition: HOME - Home Medications Comprehensive Discharge Medication List: Ambulatory Orders Cipro 06/26/18 Tylenol 06/26/18 - Discharge Referral Referred to [facility] Med P.C.: No
--- NOTE | 2018-06-28 10:21 | PN ---
Progress Note, Physician History of Present Illness: Feeling better Back pain resolved No c/o dysuria/hematuria Temps down- low grade WBC WNL BC (-) - Current Medication List Current Medications: Active Medications Acetaminophen (Tylenol -) 650 mg PO Q6H PRN PRN Reason: PAIN LEVEL 1-5 OR FEVER Last Admin: 06/27/18 17:46 Dose: 650 mg Acetaminophen (Ofirmev Injection -) 1,000 mg IVPB Q6H PRN PRN Reason: PAIN LEVEL 1-5 Last Admin: 06/27/18 12:45 Dose: 1,000 mg Sodium Chloride (Normal Saline -) 1,000 mls @ 75 mls/hr IV ASDIR NINA Last Admin: 06/27/18 14:18 Dose: 75 mls/hr Ceftriaxone Sodium (Rocephin 2gm Ivpb (Pre-Docked)) 2 gm in 100 mls @ 200 mls/ hr IVPB DAILY NINA; Protocol Last Admin: 06/28/18 09:06 Dose: 200 mls/hr Tramadol HCl (Ultram -) 50 mg PO Q6H PRN PRN Reason: PAIN LEVEL 6-10 - Objective Vital Signs: Vital Signs Temperature 98.8 F 06/28/18 06:20 Pulse Rate 72 06/28/18 06:20 Respiratory Rate 18 06/28/18 06:20 Blood Pressure 110/55 06/28/18 06:20 O2 Sat by Pulse Oximetry (%) 98 06/28/18 06:20 Constitutional: Yes: No Distress Eyes: Yes: Conjunctiva Clear Cardiovascular: Yes: Regular Rate and Rhythm, S1, S2 Respiratory: Yes: CTA Bilaterally Gastrointestinal: Yes: Normal Bowel Sounds, Soft. No: Tenderness Genitourinary: No: CVA Tenderness - Left, CVA Tenderness - Right Edema: No Labs: CBC, BMP 06/28/18 08:00 06/28/18 08:00 INR, PTT INR 1.74 (0.82-1.09) H 06/26/18 20:10 Assessment/Plan E. coli UTI/ presumed pyelonephritis Clinically improved Contacted [facility] micro lab- urine c/s + E. coli sensitive to all agents tested except ampicillin OK for discharge home on cipro 500mg po bid additional 10d
== END 2018-06-28 12:00 | disposition home or self-care (01) | DRG 690 ==
LOC: FER 19:29 → FM/S 21:26
PROVIDERS: ADMIT Internal Medicine; ATTEND Nurse Practitioner Family
DX: N10 Acute pyelonephritis (principal); B96.20 Unspecified Escherichia coli [E. coli] as the cause of diseases classified elsewhere
CPT/HCPCS: 36415; 71045-TC-FY; 76775-TC; 80048; 80053; 81003; 81015; 83605; 83735; 84703; 85025; 85610; 87040; 87086; 93005; 99283-25; J0131; J7030

== ENCOUNTER 2019-08-10 14:07 | Emergency (ER) | payer BC ==
[2019-08-10 14:18] VITALS: BMI 28.5
--- NOTE | 2019-08-10 14:18 | PDOC ---
Rapid Medical Evaluation Time Seen by Provider: 08/10/19 14:14 Medical Evaluation: Allergies Allergy/AdvReac Type Severity Reaction Status Date / Time No Known Allergies Allergy Unverified 11/08/16 02:34 08/10/19 14:15 Pt c/o:rlq pain intermittently x 4 days, no v/d/fever Pt on brief exam: vss, rt flank and rlq tenderness, - mcburney/murphys sign Pt ordered for: labs, urine , HIV ( pt requested) Pt to proceed to the ED Discharge Disposition - Diagnosis Vaginal bleeding affecting early - Discharge Dispostion Disposition: HOME Condition at time of disposition: Fair - Referrals Referrals: Morgan Hinton [Non Staff, Medical] - Loni Mandujano MD [Primary Care Provider] - - Patient Instructions Additional Instructions: Your beta hCG is 6800 Your ultrasound shows no intrauterine or outside of the uterus. Dr. Hinton your radar scientist is aware of the situation and is expecting to see you in his office Thursday at 12 noon. You do not need an appointment for this visit. He received a medicine called methotrexate today. You may experience some abdominal cramping as well as vaginal bleeding. This is normal. Return to the closest emergency department immediately for severe abdominal pain , vaginal bleeding requiring more than 2 pads per hour or for any other symptoms. Thank you very much for choosing us to provide your emergent health care needs. - Post Discharge Activity Work/School Note: Back to Work
[2019-08-10 15:42] LABS: BASO % 0.5 % (0-2.0); EOS % 4.2 % (0-4.5); HEMATOCRIT 35.4 % (32.4-45.2); HEMOGLOBIN 11.6 GM/dL (10.7-15.3); LYMPH % 29.2 % (8-40); MCH 28.8 pg (25.7-33.7); MCHC 32.7 g/dl (32.0-36.0); MEAN CELL VOLUME 88.1 fl (80-96); MEAN PLT VOLUME 8.4 fl (7.5-11.1); NEUT % 58.1 % (42.8-82.8); PLATELET COUNT 335 K/MM3 (134-434); RBC 4.02 M/mm3 (3.60-5.2); RDW 13.3 % (11.6-15.6); WHITE BLOOD COUNT 8.4 K/mm3 (4.0-10.0)
[2019-08-10 15:51] LABS: EPI CELLS 1.1 /HPF (0-5/HPF); HYALINE CASTS 0 /lpf (0-8); URINE APPEARANCE CLEAR; URINE BACTERIA 78.8 /hpf (NEGATIVE); URINE BILIRUBIN NEGATIVE (NEGATIVE); URINE COLOR YELLOW; URINE GLUCOSE (UA) NEGATIVE (NEGATIVE); URINE KETONE NEGATIVE (NEGATIVE); URINE LEUK ESTERASE TRACE (NEGATIVE); URINE NITRITE NEGATIVE (NEGATIVE); URINE PROTEIN NEGATIVE (NEGATIVE); URINE RBC 6 /hpf (0-4); URINE UROBILINOGEN 0.2 mg/dL (0.2-1.0); URINE WBC 3 /hpf (0-5)
[2019-08-10 16:12] LABS: ALBUMIN 3.5 g/dl (3.4-5.0); ALK PHOS 75 U/L (45-117); ANION GAP 8 MMOL/L (8-16); BILIRUBIN,TOTAL < 0.1 mg/dL (0.2-1); BLOOD UREA NITROGEN 7.7 mg/dL (7-18); CALCIUM 8.7 mg/dL (8.5-10.1); CHLORIDE 106 mmol/L (98-107); CO2 25 mmol/L (21-32); CREATININE 0.5 mg/dL (0.55-1.3); GLUCOSE,RANDOM 82 mg/dL (74-106); POTASSIUM 3.7 mmol/L (3.5-5.1); SGOT/AST 15 U/L (15-37); SGPT/ALT 24 U/L (13-61); SODIUM 139 mmol/L (136-145); TOT PROT 7.5 g/dl (6.4-8.2)
[2019-08-10] MEDS ORDERED: ACETAMINOPHEN 1000 MG/100 ML VIAL (NON FORMULARY) IVPB ONE (16:24)
[2019-08-10] MEDS ORDERED: ACETAMINOPHEN INJECTION 100 ML IVPB ONE (16:32)
--- NOTE | 2019-08-10 16:51 | PDOC ---
History of Present Illness - General Chief Complaint: Pain Stated Complaint: ABDOMINAL PAIN Time Seen by Provider: 08/10/19 14:14 History Source: Patient Exam Limitations: No Limitations - History of Present Illness Travel History: No Initial Comments: 08/10/19 16:47 HISTORY OF PRESENT ILLNESS: Is a 24-year-old G2, P1 with LMP 9/2 presents to the emergency department for evaluation of right-sided abdominal pain radiating to the right flank. Patient reports the pain started approximately 3 days ago and was intermittent in nature. Patient reports the pain continues to be intermittent lasting for 2 to 3 minutes at a time then spontaneously resolving. She describes it as a sharp aching pain which is now located in the right flank and right lower abdomen. Patient is unable to identify any alleviating or aggravating factors. Patient denies nausea, vomiting, diarrhea, constipation , dysuria, hematuria. Patient reports vaginal bleeding at this time. No recent travel or sick contacts. PAST MEDICAL HISTORY: Denies past medical history SURGICAL HISTORY: Denies ALLERGIES: No known drug allergies REVIEW OF SYSTEMS General/Constitutional: Denies fever or chills. Denies weakness, weight change. HEENT: Denies change in vision. Denies ear pain or discharge. Denies sore throat. Cardiovascular: Denies chest pain or shortness of breath. Respiratory: Denies cough, wheezing, or hemoptysis. Gastrointestinal: See HPI Genitourinary: See HPI Musculoskeletal: Denies joint or muscle swelling or pain. Denies neck or back pain. Skin and breasts: Denies rash or easy bruising. Neurologic: Denies headache, vertigo, loss of consciousness, or loss of sensation. Psychiatric: Denies depression or anxiety. Endocrine: Denies increased thirst. Denies abnormal weight change. Hematologic/Lymphatic: Denies anemia, easy bleeding, or history of blood clots. Allergic/Immunologic: Denies hives or skin allergy. Denies latex allergy. PHYSICAL EXAM General Appearance: Well-appearing, appropriately dressed. No apparent distress , no intoxication. HEENT: EOMI, PERRLA, normal ENT inspection, normal voice, TMs normal, pharynx normal. No conjunctival pallor. No photophobia, scleral icterus. Neck: Supple. Trachea midline. No tenderness, rigidity, carotid bruit, stridor , lymphadenopathy, or thyromegaly. Respiratory/Chest: Lungs CTAB. No shortness of breath, chest tenderness, respiratory distress, accessory muscle use. No crackles, rales, rhonchi, stridor , wheezing, dullness Cardiovascular: RRR. S1, S2. No JVD, murmur, bradycardia, tachycardia. Vascular Pulses: Dorsalis-Pedis (R): 2+, Dorsalis-Pedis (L): 2+ Gastrointestinal/Abdominal: Normal bowel sounds. Right-sided lower abdominal tenderness with guarding. No rebound tenderness. Negative psoas, obturator and Rovsing signs. No organomegaly, pulsatile mass, hepatomegaly, splenomegaly. Lymphatic: No adenopathy, tenderness. Musculoskeletal/Extremities: Normal inspection. FROM of all extremities, normal capillary refill. Pelvis Stable. No CVA tenderness. No tenderness to extremities, pedal edema, swelling, erythema or deformity. Integumentary: Appropriate color, dry, warm. No cyanosis, erythema, jaundice or rash Neurologic: mainspring strip gauger II-XII intact. Fully oriented, alert. Appropriate mood/affect. Motor strength 5/5. No appreciable EOM palsy, facial droop or sensory deficit. Past History - Past Medical History Allergies/Adverse Reactions: Allergies Allergy/AdvReac Type Severity Reaction Status Date / Time No Known Allergies Allergy Unverified 08/10/19 14:17 Home Medications: Ambulatory Orders NK [No Known Home Medication] 08/10/19 COPD: No GI Disorders: Yes (RECENT KIDNEY INFECTION) - Psycho Social/Smoking Cessation Hx Smoking History: Never smoked Have you smoked in the past 12 months: No Information on smoking cessation initiated: No Hx Alcohol Use: No Drug/Substance Use Hx: No Substance Use Type: None *Physical Exam - Vital Signs Last Vital Signs Temp Pulse Resp BP Pulse Ox 98.6 F 79 18 138/97 100 08/10/19 14:15 08/10/19 14:15 08/10/19 14:15 08/10/19 14:15 08/10/19 15:25 ED Treatment Course - LABORATORY CBC & Chemistry Diagram: 08/10/19 15:20 08/10/19 15:20 - ADDITIONAL ORDERS Additional order review: Laboratory Results 08/10/19 08/10/19 08/10/19 15:20 15:20 15:20 Sodium Potassium Chloride Carbon Dioxide Anion Gap BUN Creatinine Est GFR (CKD-EPI)AfAm Est GFR (CKD-EPI)NonAf Random Glucose Calcium Total Bilirubin AST ALT Alkaline Phosphatase Total Protein Albumin Lipase 90 Urine Color Yellow Urine Appearance Clear Urine pH 8.0 D Ur Specific Walton 1.009 L Urine Protein Negative Urine Glucose (UA) Negative Urine Ketones Negative Urine Blood 2+ H Urine Nitrite Negative Urine Bilirubin Negative Urine Urobilinogen 0.2 Ur Leukocyte Esterase Trace Urine WBC (Auto) 3 Urine RBC (Auto) 6 Urine Casts (Auto) 0 U Epithel Cells (Auto) 1.1 Urine Bacteria (Auto) 78.8 Urine HCG, Qual Positive 08/10/19 15:20 Sodium 139 Potassium 3.7 Chloride 106 Carbon Dioxide 25 Anion Gap 8 BUN 7.7 Creatinine 0.5 L Est GFR (CKD-EPI)AfAm 155.90 Est GFR (CKD-EPI)NonAf 134.52 Random Glucose 82 Calcium 8.7 Total Bilirubin < 0.1 L AST 15 ALT 24 Alkaline Phosphatase 75 Total Protein 7.5 Albumin 3.5 Lipase Urine Color Urine Appearance Urine pH Ur Specific Walton Urine Protein Urine Glucose (UA) Urine Ketones Urine Blood Urine Nitrite Urine Bilirubin Urine Urobilinogen Ur Leukocyte Esterase Urine WBC (Auto) Urine RBC (Auto) Urine Casts (Auto) U Epithel Cells (Auto) Urine Bacteria (Auto) Urine HCG, Qual 08/10/19 15:20 RBC 4.02 MCV 88.1 MCHC 32.7 RDW 13.3 D MPV 8.4 Neutrophils % 58.1 Lymphocytes % 29.2 D Monocytes % 8.0 Eosinophils % 4.2 Basophils % 0.5 - RADIOLOGY Radiology Studies Ordered: Category Date Time Status TRANSVAGINAL US PREG [US] Stat Ultrasound 08/10/19 16:24 Ordered - Medications Given in the ED: ED Medications Discontinued Medications Generic Name Dose Route Start Last Admin Trade Name Freq PRN Reason Stop Dose Admin Acetaminophen 1,000 mg 08/10/19 16:24 08/10/19 16:40 Ofirmev Injection - IVPB 08/10/19 16:25 1,000 mg ONCE ONE Administration Medical Decision Making - Medical Decision Making 08/10/19 16:50 A/P: 24-year-old woman with right-sided abdominal and flank pain for 4 days Labs performed at [facility] evaluation revealed trace blood in the urine. Otherwise unremarkable Urine testing is positive Given positive test and vaginal bleeding I will obtain a beta hCG and type and screen in addition to previous laboratory testing. Transvaginal ultrasound ordered Reassess 08/10/19 19:08 Dr. 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 08/10/19 19:19 Beta-hCG 6800 Rh+ Case has been discussed with Dr. 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 I have discussed this conversation with the patient was verbalized understanding. Discharge - Discharge Information Problems reviewed: Yes Clinical Impression/Diagnosis: Vaginal bleeding affecting early Condition: Fair Disposition: HOME - Admission No - Follow up/Referral Referrals: Loni Mandujano MD [Primary Care Provider] - Morgan Hinton [Non Staff, Medical] - - Patient Discharge Instructions Additional Instructions: Your beta hCG is 6800 Your ultrasound shows no intrauterine or outside of the uterus. Dr. Hinton your bulk truck driver is aware of the situation and is expecting to see you in his office Thursday at 12 noon. You do not need an appointment for this visit. He received a medicine called methotrexate today. You may experience some abdominal cramping as well as vaginal bleeding. This is normal. Return to the closest emergency department immediately for severe abdominal pain , vaginal bleeding requiring more than 2 pads per hour or for any other symptoms. Thank you very much for choosing us to provide your emergent health care needs. - Post Discharge Activity Work/Back to School Note: Back to Work
[2019-08-10] MEDS ORDERED: METHOTREXATE SODIUM/PF 25 MG/ML VIAL IM ONE (19:18)
[2019-08-10 21:03] VITALS: BP 112/72; PULSE 73; TEMP 98.1
== END 2019-08-10 20:55 | disposition home or self-care (01) ==
LOC: JER 14:07
PROC: 3E033NZ Introduction of Analgesics, Hypnotics, Sedatives into Peripheral Vein, Percutaneous Approach (ICD-10-PCS; principal; 2019-08-10)
PROC: 3E023GC Introduction of Other Therapeutic Substance into Muscle, Percutaneous Approach (ICD-10-PCS; 2019-08-10)
DX: O26.891 Other specified pregnancy related conditions, first trimester (principal); Z3A.00 Weeks of gestation of pregnancy not specified; N93.9 Abnormal uterine and vaginal bleeding, unspecified; N15.9 Renal tubulo-interstitial disease, unspecified
CPT/HCPCS: 36415; 76817-TC; 80053; 81003; 83690; 84702; 84703; 85025; 86850; 86900; 86901; 87086; 99284-25; J0131; J9260